=== PATIENT | female | born 2000 | race African-American/Black ===

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

== ENCOUNTER 2020-02-05 07:52 | Observation (INO) ==
[2020-02-05] MEDS ORDERED: methylPREDNISolone SOD SUC 125 MG/2 ML VIAL IV STA (08:39)
[2020-02-05] MEDS ORDERED: ALBUTEROL NEB SOLN 5 MG/ML 20 ML/BOTTLE CONT NEB SCH (09:00)
[2020-02-05 09:17] LABS: Basophils # 0.1 10*3/uL (0.0-0.2); Basophils % 0.8 % (0.0-0.8); Eosinophils # 0.7 10*3/uL (0.0-0.87); Eosinophils % 6.9 % (0.00-10.9); Hematocrit 42.4 VOL% (35.7-47.0); Hemoglobin 14.5 GM/DL (12.0-16.0); Immature Granulocytes % 0.3 %; Immature Granulocytes Absolute 0.03 #; Lymphocytes # 3.5 10*3/uL (1.4-4.0); Lymphocytes % 34.4 % (21.3-54.2); Mean Corpuscular HGB Conc 34.2 GM/DL (32-36); Mean Platelet Volume 10.1 FL (9.6-12.0); Monocytes % 4.5 % (1.7-12.7); Neutrophils % 53.1 % (38.7-73.9); Platelet Count 306 T/CUMM (130-400); Red Blood Count 4.93 MC/CUMM (3.8-5.5); Red Cell Distribution Width 13.4 % (9.3-17.3)
[2020-02-05] MEDS ORDERED: LEVOFLOXACIN INJ 500 MG in PREMIX 1 EACH IV STA (09:56)
[2020-02-05] MEDS ORDERED: GLUCAGON 1 MG VIAL IM PRN (11:21)
[2020-02-05] MEDS ORDERED: DEXTROSE 50% 25 GM/50 ML VIAL IV PRN (11:21)
[2020-02-05] MEDS: LEVOFLOXACIN INJ 500 MG in PREMIX 1 EACH IV SCH (12:00)
[2020-02-05] MEDS: ENOXAPARIN 40 MG/0.4 ML SYRINGE SUBCUT SCH (12:03)
[2020-02-05] MEDS: ALBUTEROL/IPRATROPIUM 3 ML NEB RESP TX SCH ×3 (14:28→23:42)
[2020-02-05] MEDS: ACETAMINOPHEN 325 MG TABLET PO PRN (16:48)
[2020-02-05] MEDS: methylPREDNISolone SOD SUC 125 MG/2 ML VIAL IV SCH ×2 (17:36→23:22)
[2020-02-06] MEDS: ALBUTEROL/IPRATROPIUM 3 ML NEB RESP TX SCH ×3 (02:30→11:33)
[2020-02-06] MEDS: methylPREDNISolone SOD SUC 125 MG/2 ML VIAL IV SCH (05:50)
[2020-02-06 06:33] LABS: Basophils % 0.1 % (0.0-0.8); Hematocrit 41.4 VOL% (35.7-47.0); Hemoglobin 13.8 GM/DL (12.0-16.0); Immature Granulocytes % 0.6 %; Immature Granulocytes Absolute 0.08 #; Lymphocytes # 1.7 10*3/uL (1.4-4.0); Lymphocytes % 13.4 % (21.3-54.2); Mean Corpuscular HGB Conc 33.3 GM/DL (32-36); Mean Corpuscular Volume 87.2 FL (87-102); Mean Platelet Volume 10.4 FL (9.6-12.0); Monocytes % 1.7 % (1.7-12.7); Neutrophils % 84.2 % (38.7-73.9); Platelet Count 284 T/CUMM (130-400); Red Blood Count 4.75 MC/CUMM (3.8-5.5); Red Cell Distribution Width 13.4 % (9.3-17.3); White Blood Count 12.4 T/CUMM (4-12)
[2020-02-06 11:52] VITALS: BP 129/68
[2020-02-06] MEDS: ENOXAPARIN 40 MG/0.4 ML SYRINGE SUBCUT SCH (11:57)
[2020-02-06] MEDS: LEVOFLOXACIN INJ 500 MG in PREMIX 1 EACH IV SCH (11:57)
[2020-02-06] MEDS: ACETAMINOPHEN 325 MG TABLET PO PRN (12:00)
[2020-02-06] MEDS ORDERED: methylPREDNISolone SOD SUC 125 MG/2 ML VIAL IV SCH (14:00)
[2020-02-06] MEDS ORDERED: MELATONIN 3 MG TABLET PO SCH (21:00)
== END 2020-02-06 14:00 | disposition left against medical advice (07) ==
LOC: N.ED 07:52 → N.EDINP 07:52 → SUATTDRO 11:21 → N.TELES 12:47
PROVIDERS: ADMIT Internal Medicine; ATTEND Internal Medicine